=== PATIENT | female | born 1985 | race Caucasian/White ===

== ENCOUNTER → 2021-12-10 | Outpatient (CLI) | payer OTHER | LOC: LAB 13:24 | DX: E03.9 Hypothyroidism, unspecified (principal) ==

== ENCOUNTER → 2021-12-26 | Outpatient (CLI) | payer OTHER | LOC: LAB 11:30 | DX: E03.9 Hypothyroidism, unspecified (principal) ==

== ENCOUNTER → 2022-01-09 | Outpatient (CLI) | payer OTHER | LOC: LAB 15:33 | DX: E03.9 Hypothyroidism, unspecified (principal) ==

== ENCOUNTER → 2022-01-23 | Outpatient (REF) | payer OTHER | LOC: LAB 11:54 | DX: E03.9 Hypothyroidism, unspecified (principal) ==